=== PATIENT | male | born 1980 | race Caucasian/White ===

== ENCOUNTER 2018-08-08 09:33 | Outpatient (REF) | payer MEDICAID, SELFPAY ==
[2018-08-08 21:13] LABS: Abs Immature Grans 0.02 k/cumm (0.0-0.09); Absolute Basophil Count 0.05 k/cumm (0.0-0.2); Absolute Eosinophil Count 0.11 k/cumm (0.0-0.7); Absolute Lymphocyte Count 2.43 k/cumm (1.2-3.4); Absolute Monocyte Count 0.44 k/cumm (0.11-0.7); Absolute Neutrophil Count 4.05 k/cumm (1.2-6.7); Basophils % 0.7; Eosinophils % 1.5; HCT 46.1 % (40.0-50.0); Immature Grans % 0.3; Lymphocytes % 34.2; Mean Corp. HGB Concentration 32.5 g/dL (32.0-36.0); Mean Corpuscular Hemoglobin 27.8 pg (27.0-33.0); Mean Corpuscular Volume 85.4 fL (80-95); Mean Platelet Volume 10.7 fL (8.0-11.0); Monocytes % 6.2; Neutrophils % 57.1; Platelet Count 260 x1000/uL (130-400); RBC Distribution Width 13.3 % (11.8-14.1)
[2018-08-08 21:47] LABS: Hemoglobin A1C 8.6 % (4.5-6.2)
[2018-08-08 22:13] LABS: Vitamin D 25 Total 16.6 ng/ml (30-100)
[2018-08-08 22:20] LABS: ALT 69 U/L (12-78); AST 26 U/L (15-37); Albumin 3.5 g/dL (3.4-5.0); Alkaline Phosphatase 72 U/L (46-116); Anion Gap 8.4 mmol/L (3-11); BUN 12 mg/dL (7-18); Bilirubin, Total 0.3 mg/dL (0.2-1.0); CO2 28.6 mmol/L (21.0-32.0); CREATININE 0.74 mg/dL (0.70-1.30); Chloride 98 mmol/L (98-107); Cholesterol 165 mg/dL (50-200); Ferritin 281 ng/mL (8-388); Glucose 258 mg/dL (70-100); HDL Cholesterol 27 mg/dL (40-60); LDL CHOLESTEROL 95 mg/dL (<100); Potassium 4.1 mmol/L (3.5-5.1); Sodium 135 mmol/L (136-145); TSH (W/Ref FT4) 1.73 uIU/mL (0.358-3.74); Total Protein 7.4 g/dL (6.4-8.2); Triglyceride 321 mg/dL (30-150); Vitamin B12 346 pg/mL (193-986)
[2018-08-12 09:43] LABS: Hepatitis C Ab w Rflx HCV PCR Negative (NEGAT)
[2018-08-12 11:27] LABS: HBs Antibody, Quant <3.1 mIU/mL; Hepatitis B Surface Ab Negative; Hepatitis B Surface Ag Negative (NEGAT)
[2018-08-12 11:29] LABS: HIV-1/2 Ag & Ab Screen Negative (NEGAT)
== END 2018-08-08 09:53 ==
LOC: NCHCN 09:33
PROVIDERS: PCP Family Medicine; Visit Provider Family Medicine
DX: Z11.59 Encounter for screening for other viral diseases (principal); F32.9 Major depressive disorder, single episode, unspecified; F19.21 Other psychoactive substance dependence, in remission; Z91.5 Personal history of self-harm; Z62.810 Personal history of physical and sexual abuse in childhood; Z13.21 Encounter for screening for nutritional disorder; Z11.4 Encounter for screening for human immunodeficiency virus [HIV]; E11.65 Type 2 diabetes mellitus with hyperglycemia; E66.9 Obesity, unspecified
CPT/HCPCS: 80053; 80061; 82306; 83721; 86706; 86803; 87340; 87389; 82607; 82728; 83036; 84443; 85025

== ENCOUNTER 2021-01-28 15:14 | Outpatient (REF) | payer MEDICAID, SELFPAY ==
[2021-01-28 14:00] LABS: COMMENT (LAB VIEW ONLY) 170.03 mg/dL; Microalb ug/mg Crea 8.7 ug/mg Cr
== END 2021-01-28 15:15 | disposition home or self-care (01) ==
LOC: NCHCN 15:14
PROVIDERS: PCP Family Medicine; Visit Provider Family Medicine
DX: E11.9 Type 2 diabetes mellitus without complications (principal)
CPT/HCPCS: 82043; 82570

== ENCOUNTER 2021-04-01 10:59 | Outpatient (REF) | payer MEDICAID, SELFPAY ==
[2021-04-01 21:58] LABS: ALT 48 U/L (16-63); AST 26 U/L (15-37); Albumin 3.7 g/dL (3.4-5.0); Alkaline Phosphatase 66 U/L (46-116); Anion Gap 7.4 mmol/L (3-11); BUN 13 mg/dL (7-18); Bilirubin, Total 0.4 mg/dL (0.2-1.0); CO2 27.6 mmol/L (21.0-32.0); CREATININE 0.7 mg/dL (0.70-1.30); Calcium 8.8 mg/dL (8.5-10.1); Calculated LDL 119 mg/dL (<100); Chloride 107 mmol/L (98-107); Cholesterol 166 mg/dL (<200); Glucose 134 mg/dL (74-106); HDL Cholesterol 38 mg/dL (40-60); Potassium 4.1 mmol/L (3.5-5.1); Sodium 142 mmol/L (136-145); Total Protein 7.2 g/dL (6.4-8.2); Triglyceride 45 mg/dL (<150)
== END 2021-04-01 11:00 | disposition home or self-care (01) ==
LOC: NCHCN 10:59
PROVIDERS: PCP Family Medicine; Visit Provider Family Medicine
DX: I10 Essential (primary) hypertension (principal); E11.9 Type 2 diabetes mellitus without complications; E78.5 Hyperlipidemia, unspecified
CPT/HCPCS: 80053; 80061

== ENCOUNTER 2021-12-16 17:46 | Outpatient (REF) | payer MEDICAID, SELFPAY ==
[2021-12-16 14:29] LABS: HCT 47.7 % (40.0-50.0); MCH 27.5 pg (27.0-33.0); MCHC 31.4 % (32.0-36.0); MCV 87.4 fL (80-95); MPV 10.3 fL (8.0-11.0); Platelet Count 246 10^3/uL (130-400); RBC 5.46 10^6/uL (4.36-5.78); RDW 12.5 % (11.8-14.1); WBC 7.73 10^3/uL (4.4-10.8)
[2021-12-16 15:13] LABS: ALT 53 U/L (16-63); AST 24 U/L (15-37); Albumin 3.8 g/dL (3.4-5.0); Alkaline Phosphatase 71 U/L (46-116); Anion Gap 7.5 mmol/L (3-11); BUN 13 mg/dL (7-18); Bilirubin, Total 0.5 mg/dL (0.2-1.0); CO2 30.5 mmol/L (21.0-32.0); CREATININE 0.8 mg/dL (0.70-1.30); Calcium 8.7 mg/dL (8.5-10.1); Chloride 102 mmol/L (98-107); Glucose 208 mg/dL (74-106); Potassium 4.1 mmol/L (3.5-5.1); Sodium 140 mmol/L (136-145); Total Protein 7.5 g/dL (6.4-8.2)
[2021-12-16 16:10] LABS: COMMENT (LAB VIEW ONLY) 222.57 mg/dL; Microalb ug/mg Crea 10.6 ug/mg Cr
[2021-12-19 03:19] LABS: Vitamin D 25 Total 21.7 ng/mL (30-100)
[2021-12-21 00:32] LABS: Testosterone, Total 269 ng/dL (240-950)
== END 2021-12-16 17:47 | disposition home or self-care (01) ==
LOC: NCHCN 17:46
PROVIDERS: PCP Family Medicine; Visit Provider Family Medicine
DX: E66.9 Obesity, unspecified (principal); R53.83 Other fatigue; Z86.39 Personal history of other endocrine, nutritional and metabolic disease; E11.9 Type 2 diabetes mellitus without complications
CPT/HCPCS: 80053; 82306; 84403; 85027; 82043; 82570

== ENCOUNTER 2023-01-15 13:53 | Outpatient (REF) | payer MEDICAID, SELFPAY ==
[2023-01-15 21:09] LABS: BUN 15 mg/dL (7-18); CREATININE 0.8 mg/dL (0.70-1.30); Calcium 9.2 mg/dL (8.5-10.1); Calculated LDL 63 mg/dL (<100); Chloride 103 mmol/L (98-107); Cholesterol 108 mg/dL (<200); Estimated GFR 113.32 (mL/min/1.73m2); Glucose 102 mg/dL (74-106); HDL Cholesterol 32 mg/dL (40-60); Potassium 3.8 mmol/L (3.5-5.1); Sodium 141 mmol/L (136-145); Triglyceride 68 mg/dL (<150)
[2023-01-15 21:30] LABS: COMMENT (LAB VIEW ONLY) 384.92 mg/dL; Microalb ug/mg Crea 6.2 ug/mg Cr
== END 2023-01-15 13:54 | disposition home or self-care (01) ==
LOC: NCHCN 13:53
PROVIDERS: PCP Family Medicine; Visit Provider Family Medicine
DX: I10 Essential (primary) hypertension (principal); E78.6 Lipoprotein deficiency; E11.9 Type 2 diabetes mellitus without complications
CPT/HCPCS: 80048; 80061; 82043; 82570

== ENCOUNTER → 2023-08-02 08:25 | Outpatient (CLI) | payer MEDICAID, SELFPAY ==
--- NOTE | 2023-08-02 08:00 | DI.US_ITS ---
Exam(s) US LOWER EXTREMITY VENOUS RT EXAM: US LOWER EXTREMITY VENOUS RT CLINICAL HISTORY: leg swelling rt, M79.89 soft tissue disorders. TECHNIQUE: Lower extremity venous ultrasound performed using grayscale, color-flow, and spectral Do ppler analysis. COMPARISON: No exams were available for comparison FINDINGS: The common femoral, femoral and popliteal veins demonstrate normal compressibility, augmentation, and color Doppler. The posterior tibial veins are patent. No saphenous vein thrombosis or other superfi cial venous thrombosis is seen. No hematoma or Avina's cyst is seen. IMPRESSION: Negative lower extremity ultrasound. No evidence of DVT. DATA REPOSITORY:
--- OUTSIDE RECORDS SUMMARY | 2023-08-02 08:26 | XMS_ITS | Continuity of Care Document ---
Author Name Unknown Organization [facility] Address [address] [place] [address] Care Team Providers Care Spanish Speaking Nanny Name Role Phone [facility]ici an Encounter [facility] Date(s): 02/12/23 - 02/12/[address] [address] Encounter Diagnosis Sprain of shoulder(Discharge Diagnosis) - 02/12/23 Discharge Disposition: Home or Self Care Attending Physician: Mingo Reynoso MD Admitting Physician: Mingo Reynoso MD Allergies, Adverse Reactions, Alerts No Known Medication Allergies Medications !-Robaxin-750 oral tablet 1,500 mg = 2 tab, Oral, TID, X 7 days, # 42 tab, 0 Refill(s), 02/19/23 20:50:00 EDT, Pharmacy: [id number], 185.42, cm, 02/12/23 18:30:00 EDT, Height/Length Dosing, 112.49, kg, 02/12/23 18:30:00 EDT, Weight Dosing Start Date: 02/12/23 Stop Date: 02/19/23 Status: Ordered amLODIPine 10 mg oral tablet 10 mg = 1 tab, Oral, Daily, # 30 tab, 0 Refill(s) Start Date: 09/21/22 Status: Ordered aspirin 81 mg oral delayed release tablet 81 mg = 1 tab, Oral, Daily, # 30 tab, 0 Refill(s) Start Date: 09/21/22 Status: Ordered atorvastatin 20 mg oral tablet 20 mg = 1 tab, Oral, Daily, # 30 tab, 0 Refill(s) Start Date: 09/21/22 Status: Ordered hydroCHLOROthiazide 25 mg oral tablet 12.5 mg = 0.5 tab, Oral, BID, 0 Refill(s) Start Date: 09/21/22 Status: Ordered Januvia 100 mg oral tablet 100 mg 1 tab, Oral, Daily, # 30 tab, 0 Refill(s) Start Date: 09/21/22 Status: Ordered metFORMIN 1000 mg oral tablet 1,000 mg = 1 tab, Oral, BID, # 60 tab, 0 Refill(s) Start Date: 09/21/22 Status: Ordered Prevacid 30 mg oral delayed release capsule 30 mg = 1 cap, Oral, BID, # 60 cap, 0 Refill(s) Start Date: 09/21/22 Status: Ordered Suboxone 12 mg-3 mg sublingual film 1 film, SL, Daily, dissolve under the tongue, 0 Refill(s) Start Date: 09/21/22 Status: Ordered Toprol-XL 25 mg oral tablet, extended release 25 mg = 1 tab, Oral, Daily, # 30 tab, 0 Refill(s) Start Date: 09/21/22 Status: Ordered Problem List Condition Confirmation Course Effective Dates Status Health St at[facility] Informant Acute low back pain Confirmed Active Chews tobacco Confirmed Active Daytime somnolence Confirmed Active Depressive disorder Confirmed Active Dyslipidemia Confirmed Active GERD (gastroesophageal reflux disease) Confirmed Active Gynecomastia Confirmed Active Hypertensive disorder Confirmed Active ASAD (obstructive sleep apnea) Confirmed Active Opioid dependence Confirmed Active Radicular pain Confirmed Active Reduced libido Confirmed Active Snoring Confirmed Active Vital Signs Most recent to oldest [Reference Range]: 1 Temperature Temporal Artery [36-38 Deg C ] 36.3 Deg C (02/12/23 6:15 PM) Peripheral Pulse Rate [60-100 bpm] 76 bp m (02/12/23 6:15 PM) Respiratory Rate [12-24 br/min] 16 br/mi n (02/12/23 6:15 PM) Blood Pressure [90-140/60-90 mmHg] 169/9 4mmHg *HI* (02/12/23 6:15 PM) Weight Dosing 112.49 kg (02/12/23 6:30 PM) Weight Estimated 112.49 kg (02/12/23 6:15 PM) Height/Length Dosing 185.420 cm (02/12/23 6:30 PM) Height/Length Estimated 185.420 cm (02/12/23 6:15 PM) Social History Social History Type Response Tobacco Never tobacco user T obacco Use:. Sex Male Hospital Discharge Instructions Patient Education 02/12/2023 19:40:24 Shoulder Sprain Shoulder Sprain A shoulder sprain is a partial or complete tear in one of the tough, fiber-like tissues (ligaments)in the shoulder. The ligaments in the shoulder help to hold the shoulder in place. What are the causes? This condition may be caused by: ??? A fall. ??? A hit to the shoulder. ??? A twist of the arm. What increases the risk? You are more likely to develop this condition if you: ??? Play sports. ??? Have problems with balance or coordination. What are the signs or symptoms? Symptoms of this condition include: ??? Pain when moving the shoulder. ??? Limited ability to move the shoulder. ??? Swelling and tenderness on top of the shoulder. ??? Warmth in the shoulder. ??? A change in the shape of the shoulder. ??? Redness or bruising on the shoulder. How is this diagnosed? This condition is diagnosed with: ??? A physical exam. During the exam, you may be asked to do simple exercises with your shoulder. ??? Imaging tests such as X-rays, MRI, or a CT scan. These tests can show how severe the sprain is. How is this treated? This condition may be treated with: ??? Rest. ??? Pain medicine. ??? Ice. ??? A sling or brace. This is used to keep the arm still while the shoulder is healing. ??? Physical therapy or rehabilitation exercises. These help to improve the range of motion and strength of the shoulder. ??? Surgery (rare). Surgery may be needed if the sprain caused a joint to become unstable. Surgery may also be needed to reduce pain. Some people may develop ongoing shoulder pain or lose some range of motion in the shoulder. However, most people do not develop long-term problems. Follow these instructions at home: If you have a sling or brace: ??? Wear the sling or brace as told by your health care provider. Remove it only as told by your health care provider. ??? Loosen the sling or brace if your fingers tingle, become numb, or turn cold and blue. ??? Keep the sling or brace clean. ??? If the sling or brace is not waterproof: ??? Do not let it get wet. ??? Cover it with a watertight covering when you take a bath or shower. Activity ??? Rest your shoulder. ??? Move your arm only as much as told by your health care provider, but move your hand and fingersoften to prevent stiffness and swelling. ??? Return to your normal activities as told by your health care provider. Ask your health care provider what activities are safe for you. ??? Ask your health care provider when it is safe for you to drive if you have a sling or brace on your shoulder. ??? If you were shown how to do any exercises, do them as told by your health care provider. General instructions ??? If directed, put ice on the affected area. ??? Put ice in a plastic bag. ??? Place a towel between your skin and the bag. ??? Leave the ice on for 20 minutes, 2???3 times a day. ??? Take zddf-dmr-yspczbr and prescription medicines only as told by your health care provider. ??? Do not use any products that contain nicotine or tobacco, such as cigarettes, e-cigarettes, andchewing tobacco. These can delay healing. If you need help quitting, ask your health care provider. ??? Keep all follow-up visits as told by your health care provider. This is important. Contact a health care provider if: ??? Your pain gets worse. ??? Your pain is not relieved with medicines. ??? You have increased redness or swelling. Get help right away if: ??? You have a fever. ??? You cannot move your arm or shoulder. ??? You develop severe numbness or tingling in your arm, hand, or fingers. ??? Your arm, hand, or fingers feel cold and turn blue, white, or foote. Summary ??? A shoulder sprain is a partial or complete tear in one of the tough, fiber- like tissues (ligaments) in the shoulder. ??? This condition may be caused by a fall, a hit to the shoulder, or a twist of the arm. ??? Treatment usually includes rest, ice, and pain medicine as needed. ??? If you have a sling or brace, wear it as told by your health care provider. Remove it only as told by your health care provider. This information is not intended to replace advice given to you by your health care provider. Make sure you discuss any questions you have with your health care provider. Document Revised: 02/28/2019 Document Reviewed: 02/28/2019 [employer] 7 Patient Education ?? 2021 [employer]. Follow Up Care 02/12/2023 18:15:01 With:Berta Doe MD Address: [address] [address]- When:1 month Emergency department Discharge instructions * Mario Medina MD: PERFORM Event Display: ED Discharge Information Authored Date: [id number] CITLALI BLEVINS Flaquita :1980 Age:42 years Sex:Male Visit Date:02/12/2023 Primary Care Physician: Berta Doe MD Discharge Instructions We would like to thank you for allowing us to assist you with your healthcare needs. The following includes patient education materials and information regarding your injury/illness. Diagnosis from Today's Visit Sprain of shoulder Discharge Vitals Temperature??(Temporal Artery) 97.3 ??F (36.3 ??C) Heart Rate??(Peripheral) 76 Respiratory Rate?? 16 Blood Pressure?? 169/94?? Height?? 73.00 in (185.420 cm) Weight??(Estimated) 248.04 lb (112.49 kg) Allergies No Known Medication Allergies What to Do Next You Need to Schedule the Following Appointments Follow Up with??Berta Doe MD When:??Within 1 month Where: [address] [address]- You were treated today on an emergency basis; it may be hayes to contact your primary care provider to notify them of your visit today. You may have been referred to your regular doctor or a specialist, please follow up as instructed. If your condition worsens or you can't get in to see the doctor, contact the Emergency Department. Medications What How Much When Why Instructions Next Dose New methocarbamol (!-Robaxin-750 oral tablet) 2 tab Oral (given by mouth) 3 times a day Sprain of shoulder Duration: 7 Days Pickup at [facility] Unchanged amLODIPine (amLODIPine 10 mg oral tablet) 1 tab Oral (given by mouth) Every day Unchanged aspirin (aspirin 81 mg oral delayed release tablet) 1 tab Oral (given by mouth) Every day Unchanged atorvastatin (atorvastatin 20 mg oral tablet) 1 tab Oral (given by mouth) Every day Unchanged buprenorphine-naloxone (Suboxone 12 mg-3 mg sublingual film) 1 Film Sublingual (dissolve under the tongue) Every day dissolve under the tongue ?? Unchanged hydroCHLOROthiazide (hydroCHLOROthiazide 25 mg oral tablet) 0.5 tab Oral (given by mouth) 2 times a day Unchanged lansoprazole (Prevacid 30 mg oral delayed release capsule) 1 Capsules Oral (given by mouth) 2 times a day Unchanged metFORMIN (metFORMIN 1000 mg oral tablet) 1 tab Oral (given by mouth) 2 times a day Unchanged metoprolol (Toprol-XL 25 mg oral tablet, extended release) 1 tab Oral (given by mouth) Every day Unchanged SITagliptin (Januvia 100 mg oral tablet) 1 tab Oral (given by mouth) Every day Pharmacy Information [facility]: [address], [place] [id number] [phone] Education [employer] Shoulder Sprain A shoulder sprain is a partial or complete tear in one of the tough, fiber-like tissues (ligaments)in the shoulder. The ligaments in the shoulder help to hold the shoulder in place. What are the causes? This condition may be caused by: ? A fall. ? A hit to the shoulder. ? A twist of the arm. What increases the risk? You are more likely to develop this condition if you: ? Play sports. ? Have problems with balance or coordination. What are the signs or symptoms? Symptoms of this condition include: ? Pain when moving the shoulder. ? Limited ability to move the shoulder. ? Swelling and tenderness on top of the shoulder. ? Warmth in the shoulder. ? A change in the shape of the shoulder. ? Redness or bruising on the shoulder. How is this diagnosed? This condition is diagnosed with: ? A physical exam. During the exam, you may be asked to do simple exercises with your shoulder. ? Imaging tests such as X-rays, MRI, or a CT scan. These tests can show how severe the sprain is. How is this treated? This condition may be treated with: ? Rest. ? Pain medicine. ? Ice. ? A sling or brace. This is used to keep the arm still while the shoulder is healing. ? Physical therapy or rehabilitation exercises. These help to improve the range of motion and strength of the shoulder. ? Surgery (rare). Surgery may be needed if the sprain caused a joint to become unstable. Surgery may also be needed to reduce pain. Some people may develop ongoing shoulder pain or lose some range of motion in the shoulder. However, most people do not develop long-term problems. Follow these instructions at home: If you have a sling or brace: ? Wear the sling or brace as told by your health care provider. Remove it only as told by your healthcare provider. ? Loosen the sling or brace if your fingers tingle, become numb, or turn cold and blue. ? Keep the sling or brace clean. ? If the sling or brace is not waterproof: ? Do not let it get wet. ? Cover it with a watertight covering when you take a bath or shower. Activity ? Rest your shoulder. ? Move your arm only as much as told by your health care provider, but move your hand and fingers often to prevent stiffness and swelling. ? Return to your normal activities as told by your health care provider. Ask your health care provider what activities are safe for you. ? Ask your health care provider when it is safe for you to drive if you have a sling or brace on yourshoulder. ? If you were shown how to do any exercises, do them as told by your health care provider. General instructions ? If directed, put ice on the affected area. ? Put ice in a plastic bag. ? Place a towel between your skin and the bag. ? Leave the ice on for 20 minutes, 2???3 times a day. ? Take mson-qqx-pxdwazy and prescription medicines only as told by your health care provider. ? Do not use any products that contain nicotine or tobacco, such as cigarettes, e- cigarettes, and chewing tobacco. These can delay healing. If you need help quitting, ask your health care provider. ? Keep all follow-up visits as told by your health care provider. This is important. Contact a health care provider if: ? Your pain gets worse. ? Your pain is not relieved with medicines. ? You have increased redness or swelling. Get help right away if: ? You have a fever. ? You cannot move your arm or shoulder. ? You develop severe numbness or tingling in your arm, hand, or fingers. ? Your arm, hand, or fingers feel cold and turn blue, white, or foote. Summary ? A shoulder sprain is a partial or complete tear in one of the tough, fiber-like tissues (ligaments)in the shoulder. ? This condition may be caused by a fall, a hit to the shoulder, or a twist of the arm. ? Treatment usually includes rest, ice, and pain medicine as needed. ? If you have a sling or brace, wear it as told by your health care provider. Remove it only as told by your health care provider. This information is not intended to replace advice given to you by your health care provider. Make sure you discuss any questions you have with your health care provider. Document Revised: 02/28/2019 Document Reviewed: 02/28/2019 [employer] Patient Education ?? 2021 [employer] Tests Performed Medications and Immunizations Administered Given Robaxin, 1000 mg, Oral Patient/Surgical Assistant Certified Signature Patient Name:FELICITY CITLALI Flaquita I have received this information and my questions have been answered. Patient/Surgical Assistant Certified Name: Patient/Surgical Assistant Certified Signature: Relationship to Patient: Witness Name/Signature: Date: Electronically Signed on: 02/12/2023 20:50 EDTSigned by:Mario Mae MD: PERFORM Event Display: ED Discharge Information Authored Date: [id number] GARRYVelma CITLALI S :1980 Age:42 years Sex:Male Visit Date:02/12/2023 Primary Care Physician: Berta Doe MD Discharge Instructions We would like to thank you for allowing us to assist you with your healthcare needs. The following includes patient education materials and information regarding your injury/illness. Diagnosis from Today's Visit Sprain of shoulder Discharge Vitals Temperature??(Temporal Artery) 97.3 ??F (36.3 ??C) Heart Rate??(Peripheral) 76 Respiratory Rate?? 16 Blood Pressure?? 169/94?? Height?? 73.00 in (185.420 cm) Weight??(Estimated) 248.04 lb (112.49 kg) Allergies No Known Medication Allergies What to Do Next You Need to Schedule the Following Appointments Follow Up with??[facility], Berta Jaime MD When:??Within 1 month Where: [address] [address]- You were treated today on an emergency basis; it may be hayes to contact your primary care provider to notify them of your visit today. You may have been referred to your regular doctor or a specialist, please follow up as instructed. If your condition worsens or you can't get in to see the doctor, contact the Emergency Department. Medications What How Much When Instructions Next Dose Unchanged amLODIPine (amLODIPine 10 mg oral tablet) 1 tab Oral (given by mouth) Every day Unchanged aspirin (aspirin 81 mg oral delayed release tablet) 1 tab Oral (given by mouth) Every day Unchanged atorvastatin (atorvastatin 20 mg oral tablet) 1 tab Oral (given by mouth) Every day Unchanged buprenorphine-naloxone (Suboxone 12 mg-3 mg sublingual film) 1 Film Sublingual (dissolve under the tongue) Every day dissolve under the tongue ?? Unchanged hydroCHLOROthiazide (hydroCHLOROthiazide 25 mg oral tablet) 0.5 tab Oral (given by mouth) 2 times a day Unchanged lansoprazole (Prevacid 30 mg oral delayed release capsule) 1 Capsules Oral (given by mouth) 2 times a day Unchanged metFORMIN (metFORMIN 1000 mg oral tablet) 1 tab Oral (given by mouth) 2 times a day Unchanged metoprolol (Toprol-XL 25 mg oral tablet, extended release) 1 tab Oral (given by mouth) Every day Unchanged SITagliptin (Januvia 100 mg oral tablet) 1 tab Oral (given by mouth) Every day Education Materials Shoulder Sprain A shoulder sprain is a partial or complete tear in one of the tough, fiber-like tissues (ligaments)in the shoulder. The ligaments in the shoulder help to hold the shoulder in place. What are the causes? This condition may be caused by: ? A fall. ? A hit to the shoulder. ? A twist of the arm. What increases the risk? You are more likely to develop this condition if you: ? Play sports. ? Have problems with balance or coordination. What are the signs or symptoms? Symptoms of this condition include: ? Pain when moving the shoulder. ? Limited ability to move the shoulder. ? Swelling and tenderness on top of the shoulder. ? Warmth in the shoulder. ? A change in the shape of the shoulder. ? Redness or bruising on the shoulder. How is this diagnosed? This condition is diagnosed with: ? A physical exam. During the exam, you may be asked to do simple exercises with your shoulder. ? Imaging tests such as X-rays, MRI, or a CT scan. These tests can show how severe the sprain is. How is this treated? This condition may be treated with: ? Rest. ? Pain medicine. ? Ice. ? A sling or brace. This is used to keep the arm still while the shoulder is healing. ? Physical therapy or rehabilitation exercises. These help to improve the range of motion and strength of the shoulder. ? Surgery (rare). Surgery may be needed if the sprain caused a joint to become unstable. Surgery may also be needed to reduce pain. Some people may develop ongoing shoulder pain or lose some range of motion in the shoulder. However, most people do not develop long-term problems. Follow these instructions at home: If you have a sling or brace: ? Wear the sling or brace as told by your health care provider. Remove it only as told by your healthcare provider. ? Loosen the sling or brace if your fingers tingle, become numb, or turn cold and blue. ? Keep the sling or brace clean. ? If the sling or brace is not waterproof: ? Do not let it get wet. ? Cover it with a watertight covering when you take a bath or shower. Activity ? Rest your shoulder. ? Move your arm only as much as told by your health care provider, but move your hand and fingers often to prevent stiffness and swelling. ? Return to your normal activities as told by your health care provider. Ask your health care provider what activities are safe for you. ? Ask your health care provider when it is safe for you to drive if you have a sling or brace on yourshoulder. ? If you were shown how to do any exercises, do them as told by your health care provider. General instructions ? If directed, put ice on the affected area. ? Put ice in a plastic bag. ? Place a towel between your skin and the bag. ? Leave the ice on for 20 minutes, 2???3 times a day. ? Take hyje-qxp-qdwehqs and prescription medicines only as told by your health care provider. ? Do not use any products that contain nicotine or tobacco, such as cigarettes, e- cigarettes, and chewing tobacco. These can delay healing. If you need help quitting, ask your health care provider. ? Keep all follow-up visits as told by your health care provider. This is important. Contact a health care provider if: ? Your pain gets worse. ? Your pain is not relieved with medicines. ? You have increased redness or swelling. Get help right away if: ? You have a fever. ? You cannot move your arm or shoulder. ? You develop severe numbness or tingling in your arm, hand, or fingers. ? Your arm, hand, or fingers feel cold and turn blue, white, or foote. Summary ? A shoulder sprain is a partial or complete tear in one of the tough, fiber-like tissues (ligaments)in the shoulder. ? This condition may be caused by a fall, a hit to the shoulder, or a twist of the arm. ? Treatment usually includes rest, ice, and pain medicine as needed. ? If you have a sling or brace, wear it as told by your health care provider. Remove it only as told by your health care provider. This information is not intended to replace advice given to you by your health care provider. Make sure you discuss any questions you have with your health care provider. Document Revised: 02/28/2019 Document Reviewed: 02/28/2019 Elsevier Patient Education ?? 2021 [employer] Tests Performed Medications and Immunizations Administered Given Robaxin, 1000 mg, Oral Patient/Surgical Assistant Certified Signature Patient Name:CITLALI BLEVINS I have received this information and my questions have been answered. Patient/Surgical Assistant Certified Name: Patient/Surgical Assistant Certified Signature: Relationship to Patient: Witness Name/Signature: Date: Electronically Signed on: 02/12/2023 20:40 EDTSigned by:[facility] Patient Care team information Care Team Personnel Name: Berta Doe MD Position: No Access Member Role: Informed Provider Address: Address: [address] [address]- [place] Name: Trupti Moya Position: Nurse Member Role: ED Nurse Name: Makenzie Dougherty RN Position: Nurse Member Role: ED Nurse Name: Mario Medina MD Position: Physician Member Role: ED Physician Address: Address: [facility] [address] [place] [address] Care Team Related Persons Name: GEORGESNICK TONY Address: [address] [id number] [place] Name: REINA BLEVINS
--- OUTSIDE RECORDS SUMMARY | 2023-08-02 08:26 | XMS_ITS | Continuity of Care Document ---
Author Name Unknown Organization [facility] Address [address] [place] [address] Care Team Providers Care Content Producer Name Role Phone [facility]adiel [facility] 09/25/22 - 09/25/22 [facility] [address] [place] [address] Encounter Diagnosis Obstructive sleep apnea, adult(Discharge Diagnosis) - 09/21/22 Discharge Disposition: Home or Self Care Attending Physician: Miriam Gonsales WALLPAPER EMBOSSER HELPER Allergies, Adverse Reactions, Alerts No Known Medication Allergies Assessment and Plan Future Appointments Medications amLODIPine 10 mg oral tablet 10 mg [...] Reduced libido Confirmed Active Snoring Confirmed Active Social History Social History Type Response Sex Male Polysomnography (sleep) study * Yves Johnson: PERFORM Event Display: Sleep Study Authored Date: [id number] Physician Outpatient Note * Miriam Gonsales WALLPAPER EMBOSSER HELPER: PERFORM Event Display: Office Clinic Note Physician Authored Date: [id number] CITLALI BLEVINS :1980 Age:42 years Sex:Male Visit Date:09/25/2022 Primary Care Physician: Yadiel DIAZ, Felicita Jaime MD History of Present Illness Citlali Scott has a Zoom visit for ASAD follow-up. He has given consent to have a telehealth visit. Patient is at home, provider is in the office. ?? Citlali was seen by me on 02/16/22. He has a medical history to include back pain, DM, HTN, depression, obesity, HLD and GERD. ?? He noted symptoms of loud snoring, excessive daytime sleepiness (ESS 19), night sweats, sleep fragmentation, nocturia, leg movements in sleep and poor memory and concentration. ?? Polysomnogram was completed on 11/30/2021 (BMI 39.58). Sleep efficiency was 71%, AHI 14.1/hr, RDI 22.1/hr, REM AHI 20.7/hr, REM RDI 24.8/hr, supine AHI 18/hr, right lateral AHI 18/hr, left lateral AHI 1/hr, sp02 catrachita 86%, 5 minutes were spent at a saturation <88%, arousal index 27/hr, PLMi 3.1/hr, PLM arousal index 0.4/hr. EKG showed NSR. ?? Last visit I ordered CPAP 6-16 cm through [facility]??and he apparently was never set up with CPAP andis required to have a new visit today as it has now been more than six months since his last visit. ?? He says he contacted [facility] and was told that his order was somehow lost or [facility]. He was told that he needed another appointment in order for his insurance to cover it. He still has all above symptoms. He wants to go with a different company now. Physical Exam N/A Assessment/Plan 1.??Obstructive sleep apnea, adult??G47.33 ASAD diagnosed in 11/2021 with an AHI of 14.1/hr. I ordered CPAP when I last saw him in February but he was never set up due to his order was misplaced by [facility]. He would like to go through a different company so I put in an order to Mir for CPAP and reviewed insurance compliance criteria he will needto meet. I will see him back in about three months. He is asked to call our office for any sleep rel ated questions or concerns. I provided greater than 20 minutes in the care of this patient, more than half the time was spent in [id number] counseling. Ordered: Follow-Up Appointment Request KSENIA, *Est. 12/24/22 +/- 21 days, Future Order, In [facility] ?? Problem List/Past Medical History Ongoing Acute low back pain Chews tobacco Daytime somnolence Depressive disorder Dyslipidemia GERD (gastroesophageal reflux disease) Gynecomastia Hypertensive disorder Morbid obesity Opioid dependence ASAD (obstructive sleep apnea) Radicular pain Reduced libido Snoring Historical No qualifying data Medications amLODIPine 10 mg oral tablet, 10 mg= 1 tab, Oral, Daily aspirin 81 mg oral delayed release tablet, 81 mg= 1 tab, Oral, Daily atorvastatin 20 mg oral tablet, 20 mg= 1 tab, Oral, Daily hydroCHLOROthiazide 25 mg oral tablet, 12.5 mg= 0.5 tab, Oral, BID Januvia 100 mg oral tablet, 100 mg= 1 tab, Oral, Daily metFORMIN 1000 mg oral tablet, 1000 mg= 1 tab, Oral, BID Prevacid 30 mg oral delayed release capsule, 30 mg= 1 cap, Oral, BID Suboxone 12 mg-3 mg sublingual film, 1 film, SL, Daily Toprol-XL 25 mg oral tablet, extended release, 25 mg= 1 tab, Oral, Daily Allergies No Known Medication Allergies Electronically Signed on 09/25/22 08:58 AM Miriam Gonsales WALLPAPER EMBOSSER HELPER * Yves Johnson: PERFORM Event Display: Office Clinic Note Physician Authored Date: [id number] Patient Name CITLALI BLEVINS (41yo, M) ID# [id number] Appt. Date/Time 02/16/2022 03:00PM 1980 Service Dept. [facility] Provider MIRIAM GONSALES NP Insurance Med Primary: [facility] (MEDICAID) Insurance # : [id number] Med : [facility] (MEDICAID) Insurance # : [id number] Med : [facility] (MEDICAID) Insurance # : [id number] Prescription: CHANGE [facility] MEDICAID - Member is eligible. details Chief Complaint Telehealth - Video/Zoom Patient's Care Team Primary Care Provider: FELICITA HEIN MD: [address], [place] [address], , Patient's Pharmacies [id number] ([facility]): [address], [place] [address], , Vitals Ht: 6 ft 1 in Stated (185.42 cm) 02/16/2022 02:49 pm Wt: 290 lbs Stated (131.54 kg) 02/16/2022 02:50 pm BMI: 38.3 02/16/2022 02:50 pm Allergies Allergies not reviewed (last reviewed 10/28/2021) NKDA Medications Medications not reviewed (last reviewed 10/28/2021) amLODIPine 10 mg-benazepriL 20 mg capsule Take 1 capsule(s) every day by oral route. 07/10/18 entered ASIA Rodriguez aspirin 81 mg tablet Take 1 tablet(s) every day by oral route. 07/10/18 entered ASIA Rodriguez atorvastatin 20 mg tablet Take 1 tablet(s) every day by oral route. 07/10/18 entered ASIA Rodriguez hydroCHLOROthiazide 25 mg tablet Take 1 tablet(s) every day by oral route. 07/10/18 entered ASIA Rodriguez Januvia 100 mg tablet Take 1 tablet(s) every day by oral route. 07/10/18 entered ASIA Rodriguez metFORMIN 1,000 mg tablet Take 1 tablet(s) twice a day by oral route. 07/10/18 entered ASIA Rodriguez Prevacid 30 mg capsule,delayed release Take 1 capsule(s) every day by oral route. 07/10/18 entered ASIA Rodriguez Suboxone 12 mg-[address] 1 film(s) every day by sublingual route. 07/10/18 entered ASIA Rodriguez Toprol XL 25 mg tablet,extended release Take 1 tablet(s) every day by oral route. 07/10/18 entered ASIA Rodriguez Vaccines None recorded. Problems Reviewed Problems Obstructive sleep apnea syndrome - PSG 11/30/21 AHI 14.1, 02 86%, CPAP 6-16 cm [facility] Radicular pain Daytime somnolence Gastroesophageal reflux disease Low back pain General examination of patient Depressive disorder Dyslipidemia Hypertensive disorder Obesity Gynecomastia Snoring Diabetes mellitus - type 2 Opioid dependence Chews tobacco Reduced libido Family History Family History not reviewed (last reviewed 10/28/2021) Social History Social History not reviewed (last reviewed 10/28/2021) Advanced Directive What is your code status?: 0 Education and Occupation Are you currently employed?: No What is your occupation?: unemployed Substance Use Do you or have you ever smoked tobacco?: Former smoker (Notes: 14, 1 ppd. quit 2011) What was the date of your most recent tobacco screening?: 07/10/2018 What is your level of alcohol consumption?: None What is your level of caffeine consumption?: None Home and Environment Do you have any pets?: Yes Activities of Daily Living Are you blind or do you have difficulty seeing?: No (Notes: vision normal) Are you deaf or do you have serious difficulty hearing? : No Other Hard of hearing or deaf in one or both ears?: No Live alone or with others?: with others (Notes: 2 children) Surgical History Surgical History not reviewed (last reviewed 07/10/2018) [facility] Citlali Scott has a Zoom vist for PSG results. He has given consent to have a telehealth visit. Patient is at home, provider is in the office. Citlali was seen by me on 10/28/21. He has a medical history to include back pain, DM, HTN, depression, obesity, HLD and GERD. He noted symptoms of loud snoring, excessive daytime sleepiness (ESS 19), night sweats, sleep fragmentation, nocturia, leg movements in sleep and poor memory and concentration. Polysomnogram was completed on 11/30/2021 (BMI 39.58) and I reviewed the results with him in detailtoday. Sleep efficiency was 71%, AHI 14.1/hr, RDI 22.1/hr, REM AHI 20.7/hr, REM RDI 24.8/hr, supineAHI 18/hr, right lateral AHI 18/hr, left lateral AHI 1/hr, sp02 catrachita 86%, 5 minutes were spent at a saturation <88%, arousal index 27/hr, PLMi 3.1/hr, PLM arousal index 0.4/hr. EKG showed NSR. Citlali feels his sleep for the study was worse compared to a typical night at home because he had a hard time falling asleep and he woke more often than he does at home. He continues to have all above symptoms and no new sleep complaints today. ROS ROS as noted in the HPI Physical Exam N/A Assessment / Plan 1. Obstructive sleep apnea syndrome - ASAD with an AHI of 14.1/hr. Treatment is indicated given his symptoms. I discussed treatment options to include oral appliance, ENT surgery and CPAP therapy and the advantages and disadvantages of each. He has an underbite already so does not want to ty an appliance. CPAP 6-16cm is ordered. I discussed different mask options and the importance of finding the mask that will work for him within thefirst 30 days. I discussed how to adjust humidity for dryness/congestion and that the goal will be to use nightly for his total sleep time. I covered insurance compliance requirements and the DME's mask exchange policy. He will have a titration study for fine tuning of therapy and to ensure adequate oxygenation on CPAP therapy. I will see him back between 31-90 days after starting CPAP and he is encouraged to call me sooner if he is having any difficulties tolerating CPAP. Drowsy driving precautions were reviewed I provided greater than 30 minutes in the care of this patient, more than half the time was spent in [id number] counseling. G47.33: Obstructive sleep apnea (adult) (pediatric) CPAP MACHINE - Dispense auto CPAP 6-16 cm, with heated humidity, compliance capabilities, supplies PRN and mask of choice. Length of need 99 months. PLEASE START WITH NASAL PILLOWS. NPI #[id number] Qty: 1 Unit Refills: 0 Supp[facility]: [facility] Return to Office to see MIRIAM GONSALES NP at [facility] on or around 06/19/2022 Electronically Signed on 09/21/22 02:26 PM Yves Johnson Patient Care team information Personnel Name: Yadiel DIAZ, Felicita Jaime MD Address: Address: [address] [address]- [place]
== END ==
PROVIDERS: PCP Family Medicine; Visit Provider Physician Assistant
DX: M79.89 Other specified soft tissue disorders (principal)
CPT/HCPCS: 93971

== ENCOUNTER 2024-09-10 16:03 | Outpatient (REF) | payer MEDICAID, SELFPAY ==
[2024-09-10 21:27] LABS: Microalb ug/mg Crea 5.4 ug/mg Cr
== END 2024-09-10 16:04 | disposition home or self-care (01) ==
LOC: NCHCN 16:03
PROVIDERS: PCP Family Medicine; Visit Provider Family Medicine
DX: M79.89 Other specified soft tissue disorders (principal)
CPT/HCPCS: 82043; 82570